=== PATIENT | female | born 1990 | race Caucasian/White ===

== ENCOUNTER 2017-01-09 07:47 | Inpatient (IN) | payer OTHER ==
[~2017-01-09] VITALS: Ht 172.7 cm; Wt 73.5 kg
[~2017-01-09 07:47] MED LIST: CITA20TA11 PO; ONDA8TAB10 PO; ZAN150T
[2017-01-09] MEDS ORDERED: Lactated Ringer's 1,000 ML IV PRN (07:57)
[2017-01-09] MEDS ORDERED: Penicillin G K Inj 5,000,000 UNITS in Dextrose 5% Minibag Plus 100 ML IV ONE (08:00)
[2017-01-09] MEDS ORDERED: Oxytocin 10 Unit/mL Inj IM PRN ×2 (08:00→12:20)
[2017-01-09] MEDS ORDERED: Sodium Chloride LOK Flush 10 mL Syringe IVFLUSH PRN (08:00)
[2017-01-09] MEDS ORDERED: Hemorrhage Kit, Post Partum XX ONE ×2 (08:00→12:20)
[2017-01-09] MEDS ORDERED: fentaNYL-PF 50 mCg/mL 2 mL Inj IVPUSH PRN (08:00)
[2017-01-09] MEDS ORDERED: Oxytocin 30 Units/500 mL LR 30 UNITS in IV Premix 1 EACH IV PRN ×2 (08:00→12:20)
[2017-01-09] MEDS ORDERED: Carboprost 250 mCg/mL Inj IM PRN ×2 (08:00→12:20)
[2017-01-09] MEDS ORDERED: Methylergonovine 0.2 mg/mL Inj IM PRN ×2 (08:00→12:20)
[2017-01-09 08:41] LABS: BASOPHILS % (AUTO) 0.1 % (0-3); EOSINOPHILS % (AUTO) 0.4 % (0-5); MONOCYTES % (AUTO) 6.9 % (4-12); Mean Corpuscular Volume 76.6 fL (81-100); NEUTROPHILS % (AUTO) 77.7 % (40-74); Platelet Count 171 bil/L (150-400)
[2017-01-09 08:56] LABS: APPEARANCE,URINE HAZY (CLEAR,HAZY); COLOR,URINE YELLOW (YELLOW); OCCULT BLOOD,URINE LARGE (NEGATIVE); UROBILINOGEN,URINE NORMAL (NORMAL)
[2017-01-09] MEDS ORDERED: Lactated Ringer's 500 ML IV ONE (08:57)
[2017-01-09] MEDS ORDERED: Lactated Ringer's 1,000 ML IV SCH ×2 (08:57→12:20)
[2017-01-09] MEDS ORDERED: Atropine 1 mg/10 mL (Code) Syringe IVPUSH PRN (09:00)
[2017-01-09] MEDS ORDERED: fentaNYL 2 mCg/mL-Bupiv 0.125% 100 ML EPIDURAL SCH (09:00)
[2017-01-09] MEDS ORDERED: Ondansetron 2 mg/mL 2 mL Inj IVPUSH PRN (09:00)
[2017-01-09] MEDS ORDERED: EPHEDrine Sulfate 50 mg/mL Inj IVPUSH PRN (09:00)
--- NOTE | 2017-01-09 09:11 | NUR ---
received SW referral. Advised BORDER MEASURER.
--- NOTE | 2017-01-09 09:26 | DRSVH ---
PROCEDURE: US OB>14 WEEKS ANATOMY COMPLETE INDICATIONS: 34WKS NO CARE OUTSIDE/PRIOR DATING DATA: First dating scan (date and location): 01/09/17. Estimated date of delivery (JUAN JOSÉ) from first dating scan: 01/28/17. TECHNIQUE: Real-time scanning was performed of the fetus, with image documentation and biometric measurements. COMPARISON: None. FINDINGS: General: A single living intrauterine gestation is present. Presentation: Vertex Placenta: Placental position is anterior, without previa. OB-ACCOUNTS PAYABLE OR RECEIVABLE CLERK Ultrasound Procedure Report Summary Fetus Summary Est. Gest. Age by first dating scan(or LMP,if no prior): N./A. Composite Gestational Age by present scan: 37 weeks, 2 days Estimated Weight (EFW): 3243 g EFW percentile rank: N./A. Heart Rate: 129 bpm Findings(Amniotic Sac) Amniotic Fluid Index (TAYLOR): 6.60 cm Pelvis and Uterus Cervix Length: Not well seen. Biometry BiometryGroup Biparietal Diameter (Mean): 9.07 cm Gestational Age (BPD): 36 weeks, 5 days Head Circumference (Mean): 32.49 cm Gestational Age (HC): 36 weeks, 6 days Abdominal Circumference (Mean): 34.12 cm Gestational Age (AC): 38 weeks, 0 days Femur Length (Mean): 7.28 cm Gestational Age (FL): 37 weeks, 2 days Measurement variability for biometric dating: +/- 10 days from 12-20 weeks gestation, +/- 2 weeks fro m 20-30 weeks gestation, +/- 3 weeks for 30 weeks gestation or later. Anatomic survey: Neuro: Not well-seen. Nuchal skin fold: Normal at less than 6 mm between 14-20 weeks gestational age. Face: Not well-seen. Spine: Not well-seen. Heart: Not well-seen. Diaphragm: Diaphragm is intact. Stomach: Left-sided stomach is present. Kidneys: No hydronephrosis. Normal is less than 4 mm in 2nd trimester, less than 7 mm in 3rd trimester. Cord: Not well-seen. Bladder: Normal in size. Extremities: All 4 extremities identified. IMPRESSION: 1. Single living intrauterine gestation with age estimated at 37 weeks 2 days corresponding to ultras ound EDC of 01/28/17. 2. Limited anatomic survey secondary to advanced age. 3. Amniotic fluid index measuring 6.6 cm which is lower limits of normal. Dictated by: Long FERRELL Interpreted: Felix Pacheco MD on 01/09/2017 at 9:23 Transcribed by: JUAN on 01/09/2017 at 9:26 Approved by: Felix Pacheco M.D. on 01/09/2017 at 9:58
--- NOTE | 2017-01-09 09:49 | PCM.HPANE ---
Patient Data Surgeon Admitting Provider:Jeremie Funes MD Attending Provider:Jeremie Funes MD Primary Care Physician:Ethan Sanchez MD Other Provider:Brianda Bagley Anesthesia Reason for Visit 34.6 Week Pre Term 34.6 WEEK PRE TERM Ht/WT & BMI Body Mass Index Allergies Coded Allergies: No Known Allergies (Verified Allergy, Unknown, 01/09/17) Diabetes History Hx Diabetes?: No MRSA MRSA: No Medications Hypertension Medication: No Home Meds Incl Beta Prachi: No Active Scripts Ondansetron ODT 8 Mg Tab.rapdis8 Mg PO Q 8 hrs PRN PRN For Nausea #5 TABLET Prov:Adán Cade MD 06/28/15 Reported Medications Citalopram 20 Mg Voirgm85 Mg PO DAILY Ref 0 06/28/15 Ranitidine 150 MG Tablet (Zantac 150 MG Tablet)150 Mg Tab 09/24/13 History History of ENT Problems?: No Hx of Heart Problems?: No Cardiovascular History: Denies:: Congestive Heart Failure Hypertension Hx of Respiratory Problem?: No Respiratory History: Denies:: Tuberculosis Hx Neurologic Problems?: No Hx of GI Problems?: No Hx of Problems?: No HX of Peritoneal Dialysis: No Female Hx: Positive for:: Currently Hx Musculoskeletal Problems?: No Hx of Psycho/Social Problems?: No Hx Surgeries?: No Hx Any Other Health Problems?: No Hx Diabetes: No Hx Alcohol Use: NoHx Substance Use: Yes (Occassional marijuana) Smoking Status: Smoker Current Status UNK Have You Smoked inLast 12 mo: No Stop/Bang Risk Assessment Category Category 1A: Patient has history of documented sleep apnea, and HAS NOT received any narcotic, sedative or anesthesia administration during this stay. Category 1B: Patient has history of documented sleep apnea, and HAS received any narcotic , sedative or anesthesia administration during this stay Category 2: Patient has SUSPECTED Obstructive Sleep Apnea, and HAS received any narcotic , sedative or anesthesia administration during this stay. Category 3: Patient has SUSPECTED Obstructive Sleep Apnea and HAS NOT received narcotic, sedative or anesthesia administration during this stay. Category 4: Outpatient in Procedural Areas with known sleep apnea or who screen positive for High Risk via the STOP/BANG questionnaire. Exam Exam General Appearance: Alert, Oriented X3 HEENT/AIRWAY: MP 2, Neck Movement (FROM) Lungs: Clear to Auscultation, Clear to Percussion Heart: Exam Unremarkable, Regular Rate/Rhythm Meds/Labs/Diagnostics Admission Meds Current Medications Penicillin G Potassium/ Dextrose/Water (Pfizerpen Inj/ D5W Minibag Plus) 100 ml @ 240 mls/hr ONCE ONCE IV Last administered on 01/09/17t 08:40; Start at 08:00; Stop 01/09/17 at 08:24; Status DC Labs Test 01/09/17 08:17 01/09/17 08:20 White Blood Count 12.3th/mm3 (3.8-10.1) Red Blood Count 4.62mil/mm3 (3.90-5.20) Hemoglobin 11.1g/dL (12.0-15.6) Hematocrit 35.4% (35.0-46.0) Mean Corpuscular Volume 76.6fL (81-100) Mean Corpuscular Hemoglobin 24.0pg (27.0-35.0) Mean Corpuscular Hemoglobin Concent 31.4% (32.0-37.0) Red Cell Distribution Width 14.7% (12.3-15.4) Platelet Count 171bil/L (150-400) Neutrophils (%) (Auto) 77.7% (40-74) Lymphocytes (%) (Auto) 14.4% (14-46) Monocytes (%) (Auto) 6.9% (4-12) Eosinophils (%) (Auto) 0.4% (0-5) Basophils (%) (Auto) 0.1% (0-3) Plan Impression Patient chart reviewed, patient interviewed and anesthestic plan with risks, benefits, and alternatives discussed, and informed consent obtained. NPO Status: L&D Protocol ASA Physical Status: ASA1 Normal Healthy Anesthetic Plan: Epidural Bene/Risks/Altern/Consents: Yes HP Complete Prior to Induction: Yes Brent Sanchez MD Jan 09, 2017 08:57
[2017-01-09] MEDS ORDERED: Witch Hazel-Glycerin Pads TOPICAL PRN (12:20)
[2017-01-09] MEDS ORDERED: Influenza (Adult) Vaccine 0.5 mL Syringe IM ONE (12:20)
[2017-01-09] MEDS ORDERED: LANOlin HPA 7 Gm Ointment TOPICAL PRN (12:20)
[2017-01-09] MEDS ORDERED: TdaP Vaccine 0.5 mL Inj IM ONE (12:20)
[2017-01-09] MEDS ORDERED: Benzocaine (Dermoplast) 20% 60 Gm Spray TOPICAL PRN (12:20)
[2017-01-09] MEDS ORDERED: Measles-Mumps-Rubella Vaccine 0.5 mL Inj SUBQ ONE (12:20)
[2017-01-09] MEDS ORDERED: HYDROcodone-APAP 5-325 mg Tablet PO PRN (12:20)
[2017-01-09] MEDS ORDERED: Penicillin G K Inj 3,000,000 UNITS in IV Premix 1 EACH IV SCH (12:30)
[2017-01-09] MEDS ORDERED: Sodium Chloride LOK Flush 10 mL Syringe IVFLUSH SCH (16:30)
[2017-01-10 05:56] LABS: Mean Corpuscular Hemoglobin 23.6 pg (27.0-35.0); Mean Corpuscular Volume 77.7 fL (81-100)
[2017-01-10 06:19] LABS: Rubella IgG Antibody <0.90 index (Immune >0.99)
--- NOTE | 2017-01-10 07:21 | HP ---
[address] [address] HISTORY AND PHYSICAL PATIENT: ULISES HUERTAS : 1990 MR#: [id number] ADMIT: 01/09/2017 JOB ID: [id number] [facility] NOTE: DATE: 01/09/2017 IDENTIFICATION: The patient is a 26-year-old, AB1 woman. CHIEF COMPLAINT: Presented to the [facility] in labor, without care. HISTORY OF PRESENT ILLNESS: This patient has previously undergone vaginal births at [facility]. Currently however, she has had no care. Her last menstrual period on April 18, 2016, her due date would be around the January 24, placing her at approximately 38 weeks of gestation on admission. She apparently did not have health insurance and, thus, sought no care, including no labs, no ultrasounds, and no visits. She reports that she used vitamins for a time, but more recently, has not been using vitamin. She admits to marijuana use daily during this , particularly for nausea management, but she denies alcohol, cigarette smoking or other drug use. The patient this morning developed uterine contractions and thus presented to the [facility] for evaluation. She was found to be 4-5 cm dilated and in active labor, and I was called as on-call right of way appraiser for unassigned OB patients. In summary, then, the patient was admitted to [facility] on January 09, 2017, at approximately 38 weeks along in her based on her report of last menstrual period, yet without any care during the , and using marijuana regularly. PHYSICAL EXAMINATION: On admission, see vitals listing per nurse recording, no worrisome blood pressure, afebrile. Neck: No thyromegaly. Lungs: Clear to auscultation and percussion. Heart: Regular in rate and rhythm. Abdomen: Fundal height consistent with early term size vertex presentation. Positive heartbeat. Pelvic examination: Initial cervical exam in the 4-5 cm range, bag of water intact, vertex presentation. LABORATORY: labs ordered on admission, note hemoglobin 11.1, microcytic indices, platelets 171. Urinalysis negative except for RBCs and some bacteria, suspect vaginal contamination. Mucous also present. Random blood sugar 95. Other labs not available at the time and place of this dictation, although panel pending as well as urine drug screen. IMPRESSION: 1. Approximately 38 week , based on last menstrual period as provided per patient, no prior ultrasound in the . 2. No care. 3. Active labor. 4. Marijuana use throughout . 5. Reproductive history: a. 1st : termination. b. Postdates vaginal delivery, 8 pound 7 ounce baby, prodromal labor, 70 second shoulder dystocia, 2nd-degree laceration/episiotomy. Note Chlamydia identified and treated early during the . 6. Prior Chlamydia infection (2012), patient and partner treated and retested, and found to be negative, no testing during this . 7. Past-noted heart murmur, echocardiogram negative. 8. No known drug allergies. 9. Family history of diabetes (grandmother), and breast cancer (great aunt). PLAN: The patient has been admitted to [facility] on January 09, 2017, in active labor at approximately 38 weeks along as estimated, without care.
--- NOTE | 2017-01-10 07:33 | PROG NOTE ---
[address] [address] PROGRESS NOTE PATIENT: ULISES HUERTAS : 1990 MR#: [id number] ADMIT: 01/09/2017 JOB ID: [id number] [facility] NOTE: DATE: 01/10/2017 SUBJECTIVE: The patient was admitted to [facility] without any care, at term, in labor. Labor progressed appropriately and she ultimately requested epidural for anesthesia. labs were ordered, along with urine drug screening, see reports, not all available at the time of this dictation. Once completely dilated, the patient learned to push moderately well. Head descended, although there was significant heart rate drop during the last few minutes of labor that warranted vacuum assistance in order to shorten the already brief 2nd stage. Vacuum was applied and with single contraction and single push, the head was brought down easily to position and vacuum was then removed. The patient pushed out the head. There was noted large loop of occult cord, easily explaining the terminal 2nd stage heart rate drops. Note that the anterior shoulder did not immediately deliver, in part perhaps with true tendency towards shoulder dystocia and, in part perhaps due to suboptimal push at this point. Anterior shoulder was rotated with hand from behind the symphysis pubis and then readily delivered along with body and extremities. No true shoulder dystocia thus occurred due to this prompt maneuver in conjunction with bilateral hip flexion and great encouragement of the patient to push well. The umbilical cord was clamped and cut. was taken to the warmer for media services director surveillance in light of no care, as well as heart rate dropped at labor exam and vacuum assistance, although the baby was already active and crying almost immediately upon arrival to the warmer. Cord blood was obtained for routine studies. Placenta with membranes were spontaneously expelled, intact. Blood loss was in the 300 cc range. No additional membranes or clots could be palpated within the uterine cavity. Betadine solution was used to cleanse the vulvovaginal region. The only lacerations were bilateral periurethral lacerations, not bleeding, easily and carefully closed with 3-0 chromic suture interrupted stitches with burial of the knots. Hemostasis was noted to be complete. Instrument, needle, and sponge counts were found to be correct. The procedure was complete. It certainly is anticipated that mother and baby will do very well during the timeframe. We have and will again recommend care for any future pregnancies. We will also keep in mind the risk for shoulder dystocia for future deliveries, noted with the 1st, and with a tendency towards recurrence this time, although suspected small evade ( weight unavailable at the time and place of this dictation). Note that we will follow up labs, some yet pending.
--- NOTE | 2017-01-10 11:06 | PCM.DIOB ---
Obstetrical Disch Instruction Dates of Hospitalization Date of Hospital Admission Jan 09, 2017 at 07:48 Providers Admitting Physician: Jeremie Funes MD Primary Care Physician: Ethan Sanchez MD Attending Physician: Jeremie Funes MD Discharge Diagnosis Problems: (1) Status: Acute ICD Code: Z33.1 (2) No care in current Status: Acute ICD Code: O09.30 Diet Discharge Diet: No restrictions Activity Discharge Activity-General: Pelvic Rest for 6 weeks Dressing and Incisional Care Hygiene: May shower, Perineal care, Sitz bath, Dermoplast spray, Witch Heather pads, Ice Follow Up Plan Follow-up appointment: Weeks (Follow up in [address] Funes for Checkup.) Call your provider for: Fever or Chills, Shortness of breath, Heavy vaginal bleeding, Red painful breasts Jeremie Funes MD Jan 10, 2017 11:05
[2017-01-10] MEDS ORDERED: IBUP-1827 PO (11:08)
[2017-01-10 15:31] VITALS: BP 137/80; PULSE 67; RESP 16
--- NOTE | 2017-01-10 16:57 | NUR ---
[facility]: Social work assessment 01/10/17 RUSSELL and KEVEN name: Momo Billingsley Baby's name: Sarah Huynh Reason for RESOURCE CONSERVATIONIST consult: RUSSELL had no care during and was positive for THC. Current living situation: RUSSELL lives with KEVEN and their 3 year old daughter, James. KEVEN is employed in construction type labor however RUSSELL is not working presently and will seek her RN degree after baby is 1 year old. Previous children: RUSSELL and KEVEN have one previous child, James Huynh, age 3. RUSSELL and KEVEN have full custody. Substance abuse history: RUSSELL reports marijuana use during and both MOB and Baby tested positive. RUSSELL was unaware that there may be negative effects and in fact reports that she was once told there were no negative effects. RUSSELL is aware of safe smoking and plans not to smoke if she is . No additional drug use reported and UDS is negative aside from THC. Cord stat sent. MOB aware that CPS will be informed of her use. 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 RUSSELL was given medications and did quite well. RUSSELL no longer takes these medications but is requesting to be preemptively restarted. RUSSELL denies current or previous suicidal or homicidal thoughts. Source of income/state assistance: KEVEN is employed and RUSSELL has [facility] enrollment and food stamps. DV/abuse history: RUSSELL denies any current or previous abuse and states she is safe in her home. Supports: RUSSELL reports that KEVEN and both maternal and paternal extended family are supportive of her. Family present in the room at the end of assessement. Assessment/disposition: RUSSELL who had no care during and positive THC use. RUSSELL reports that her insurance lapsed and she was unaware that retroactive payments were possible when she was . RUSSELL reports obtaining insurance now and will schedule pediatric follow up. In terms of THC use, MOB now aware of risks and will not smoke while . MOB aware of CPS report due to use. RN and ED MD have no additional concerns with care and MOB is bonding appropriate. RESOURCE CONSERVATIONIST completed information only report to CPS and as RUSSELL has no additional need she will discharge home when ready. CHIOMA Ortiz Addendum: 01/10/17 at 1706 by HAO CONNOLLY SS Amended: Links added.
--- NOTE | 2017-01-12 11:24 | PATH ---
SURGICAL PATHOLOGY Attending Physician:Jeremie Funes M.D CASE STATUS: Signed Out PATIENT NAME: ULISES HUERTAS PID: [id number] : 1990 DATE COLLECTED:01/09/2017 00:00 SPECIMEN: Placenta CLINICAL HISTORY: NO CARE 1). PLACENTA FINAL DIAGNOSIS: 1.PLACENTA WITH UMBILICAL CORD AND MEMBRANES: 1. PLACENTA: 635 GRAMS (CIRCUMVALLATE PLACENTA). FOCAL FIBRINOID DEGENERATIVE CHANGES, CHORIONIC PLATE. NEGATIVE FOR SIGNIFICANT INFLAMMATION. NEGATIVE FOR SIGNIFICANT VASCULAR LESIONS. NEGATIVE FOR EVIDENCE OF SIGNIFICANT INFARCTION. 2. UMBILICAL CORD: 30.5 CM IN LENGTH WITH THREE NORMAL BLOOD VESSELS. FURCATE INSERTION 4.1 CM FROM THE PLACENTAL EDGE. NEGATIVE FOR SIGNIFICANT INFLAMMATION. 3. MEMBRANES: RUPTURED AT THE FREE PLACENTAL EDGE. NEGATIVE FOR SIGNIFICANT INFLAMMATION. ICD10 CODE O09.33 GROSS DESCRIPTION: The specimen is received in formalin, labeled with the patient's name and consists of an intact circumvallate placenta and includes placental disc (635 g, 17.5 x 15.5 x 3.4 cm), umbilical cord (length-30.5 cm, diameter-1.3 x 1.1 cm) and membranes. The membranes are ruptured at the free edge of the placenta and are semi-translucent. The umbilical cord has a furcate insertion 4.1 cm from the edge of the placenta and contains 3 vessels. The surface is smooth and shiny with diffuse focal opacities (0.8 x 0.5 cm-3.5 x 3.1 cm) involving approximately 90% of the surface. No evidence of meconium is identified. The maternal surface is dark maroon with normal cotyledon formation. The placental disc is spongy with no hematomas, infarcts, nodules, masses, or lesions identified. Section code: (A) edge of placenta with membranes; (B) umbilical cord; (C-D, E-F, G-H, I-J, K-L) placenta, 5 bisected full thickness sections. 01/11/17 JM MICRO DESCRIPTION: See diagnosis. ICD-9 CODES: CPT CODES: 1: 55821 Electronically Signed Out Adán Vera MD [facility] [address], [place] [address] Technical component performed at [facility], [address], [place], [address]
--- NOTE | 2017-01-18 01:01 | DIS ---
[address] [address] DISCHARGE SUMMARY PATIENT: ULISES HUERTAS : 1990 MR#: [id number] ADMIT: 01/09/2017 JOB ID: [id number] DIS: 01/10/2017 DISCHARGE DIAGNOSES: 1. Term , delivered. 2. Marijuana use throughout . 3. No care. PROCEDURE PERFORMED DURING HOSPITALIZATION: 1. Vaginal delivery. 2. Epidural anesthesia. HOSPITAL COURSE: Patient was admitted to [facility] on January 09, 2017, in labor, at term, without having had any care. During the timeframe, patient did well, with stable vitals, afebrile, with reasonable bleeding, ambulating, voiding, without leg pain or shortness of breath, and handling baby well. hemoglobin was 9.1, and patient was not dizzy. The patient requested discharge to home on the first day, i.e. on January 10, 2017. DISCHARGE PROGRAM: Patient will call p.r.n., yet otherwise she will follow up at six weeks for checkup. She will observe pelvic rest for six weeks. Discharge medications include ibuprofen, also to use vitamin daily while nursing.
== END 2017-01-10 17:18 | disposition home or self-care (01) | DRG 775 ==
LOC: FBCO 07:47 → FBC 07:48
PROVIDERS: ADMIT Obstetrics & Gynecology; ATTEND Obstetrics & Gynecology
PROC: 10D07Z6 Extraction of Products of Conception, Vacuum, Via Natural or Artificial Opening (ICD-10-PCS; principal; 2017-01-10)
PROC: 0TQD7ZZ Repair Urethra, Via Natural or Artificial Opening (ICD-10-PCS; 2017-01-10)
DX: O71.5 Other obstetric injury to pelvic organs (principal); O99.323 Drug use complicating pregnancy, third trimester; O09.33 Supervision of pregnancy with insufficient antenatal care, third trimester; Z3A.38 38 weeks gestation of pregnancy; F12.10 Cannabis abuse, uncomplicated; O76 Abnormality in fetal heart rate and rhythm complicating labor and delivery; Z37.0 Single live birth